=== PATIENT | female | born 1955 | race American Indian/Alaskan Native ===

== ENCOUNTER 2017-04-20 13:32 | Emergency (ER) | payer BC ==
[2017-04-20 17:47] LABS: Basophils % (Auto) 0.4 % (0.0-1.8); Eosinophils % (Auto) 1.1 % (0.0-4.3); Hematocrit 42.7 % (30.3-42.9); Hemoglobin 14.2 gm/dl (10.1-14.3); Mean Corpuscular HGB Conc 33 % (30-34); Mean Corpuscular Hemoglobin 32 pg (28-32); Mean Corpuscular Volume 96 fl (79-97); Platelet Count 253 K/mm3 (140-440); Red Blood Count 4.47 M/mm3 (3.65-5.03); Red Cell Distribution Width 14.5 % (13.2-15.2); White Blood Count 6.3 K/mm3 (4.5-11.0)
[2017-04-20 18:10] LABS: Alanine Aminotransferase 15 units/L (7-56); Albumin 4.3 g/dL (3.9-5); Albumin/Globulin Ratio 1.1 %; Alkaline Phosphatase 114 units/L (35-129); Anion Gap 21 mmol/L; BUN/Creatinine Ratio 15.71; Bilirubin,Direct < 0.2 mg/dL (0-0.2); Bilirubin,Indirect 0.5 mg/dL; Blood Urea Nitrogen 11 mg/dL (7-17); Calcium 10.1 mg/dL (8.4-10.2); Carbon Dioxide 24 mmol/L (22-30); Chloride 90.7 mmol/L (98-107); Glucose 436 mg/dL (65-100); Lipase 61 units/L (13-60); Potassium 4.6 mmol/L (3.6-5.0); Sodium 131 mmol/L (137-145); Total Protein 8.1 g/dL (6.3-8.2)
[2017-04-20] MEDS ORDERED: NORCO 5/325 PO ONE (18:58)
--- NOTE | 2017-04-20 18:58 | Emergency Department Report ---
<TERRI WHYTE - Last Filed: 04/20/17 19:26> ED Back Pain/Injury HPI - General Chief Complaint: Back Pain/Injury Stated Complaint: r flank pain Time Seen by Provider: 04/20/17 16:29 Source: patient Limitations: No Limitations - History of Present Illness -: Gradual Similar Symptoms Previously: No Place: home Quality: aching Consistency: constant Improves With: none Worsens With: none Associated Symptoms: denies other symptoms, other (off meds). denies: confusion , weakness, chest pain, numbness, difficulty walking, cough, difficulty urinating, diaphoresis, incontinence, fever/chills, constipation, headaches, abdominal pain, loss of appetite, malaise, nausea/vomiting, rash, seizure, shortness of breath, syncope - Related Data Previous Rx's Medication Instructions Recorded Last Taken Type Sulfamethoxazole/Trimethoprim 1 each PO BID #20 tablet 04/20/17 Unknown Rx [Bactrim DS TAB] Tamsulosin [Flomax] 0.4 mg PO QDAY #30 cap 04/20/17 Unknown Rx traMADol [Ultram] 50 mg PO Q6HR PRN #20 tablet 04/20/17 Unknown Rx Allergies Allergy/AdvReac Type Severity Reaction Status Date / Time Penicillins Allergy Itching Verified 04/20/17 14:23 ED Review of Systems ROS: Stated complaint: RIGHT SIDE ABDOMINAL AND BACK PAIN Other details as noted in HPI Comment: Unobtainable due to pts medical conditions Constitutional: no symptoms reported, see HPI. denies: chills Eyes: as per HPI. denies: eye pain ENT: as per HPI. denies: ear pain, throat pain Respiratory: no symptoms reported, see HPI. denies: cough, orthopnea Cardiovascular: as per HPI. denies: chest pain, palpitations, dyspnea on exertion, orthopnea Endocrine: no symptoms reported, see HPI. denies: excessive sweating, flushing , intolerance to cold, intolerance to heat Gastrointestinal: as per HPI. denies: abdominal pain (flank pain), nausea, vomiting, diarrhea, constipation, hematemesis, melena, hematochezia Genitourinary: as per HPI. denies: urgency, dysuria Musculoskeletal: as per HPI. denies: back pain Skin: as per HPI. denies: rash, lesions Neurological: as per HPI. denies: headache, weakness Psychiatric: as per HPI. denies: anxiety, depression Hematological/Lymphatic: as per HPI. denies: easy bleeding ED Past Medical Hx - Past Medical History Previous Medical History?: Yes Hx Hypertension: Yes Hx Diabetes: Yes Additional medical history: off her metformin and lisinopril - Social History Smoking Status: Never Smoker Substance Use Type: Alcohol - Medications Home Medications: Home Medications Medication Instructions Recorded Confirmed Last Taken Type Sulfamethoxazole/Trimethoprim 1 each PO BID #20 tablet 04/20/17 Unknown Rx [Bactrim DS TAB] Tamsulosin [Flomax] 0.4 mg PO QDAY #30 cap 04/20/17 Unknown Rx traMADol [Ultram] 50 mg PO Q6HR PRN #20 tablet 04/20/17 Unknown Rx ED Physical Exam - General Limitations: No Limitations General appearance: alert - Head Head exam: Present: atraumatic - Eye Eye exam: Present: PERRL - ENT ENT exam: Present: normal exam, mucous membranes moist, TM's normal bilaterally - Neck Neck exam: Present: normal inspection - Respiratory Respiratory exam: Present: normal lung sounds bilaterally - Cardiovascular Cardiovascular Exam: Present: regular rate - GI/Abdominal GI/Abdominal exam: Present: soft, normal bowel sounds. Absent: distended, tenderness, guarding, rebound, rigid, diminished bowel sounds, hyperactive bowel sounds, hypoactive bowel sounds, organomegaly, mass, bruit, pulsatile mass , hernia - Rectal Rectal exam: Present: deferred - Extremities Exam Extremities exam: Present: normal inspection, full ROM. Absent: tenderness - Back Exam Back exam: Present: normal inspection, full ROM. Absent: tenderness, CVA tenderness (R), CVA tenderness (L), muscle spasm, paraspinal tenderness, vertebral tenderness - Neurological Exam Neurological exam: Present: alert, oriented X3, CN II-XII intact, normal gait, reflexes normal. Absent: motor sensory deficit - Psychiatric Psychiatric exam: Present: normal affect, normal mood - Skin Skin exam: Present: warm, dry, intact ED Course Vital Signs 04/20/17 04/20/17 04/20/17 14:23 18:01 20:10 Temperature 98.6 F 98.4 F Pulse Rate 87 75 68 Respiratory 18 18 17 Rate Blood Pressure 180/105 Blood Pressure 153/76 [Right] O2 Sat by Pulse 100 98 Oximetry 04/20/17 20:54 Temperature Pulse Rate Respiratory 18 Rate Blood Pressure Blood Pressure [Right] O2 Sat by Pulse Oximetry - Reevaluation(s) Reevaluation #1: 04/20/17 19:17 to er today w r flank pain then she said it was rad to ant abd she is diabetic and to be on metformin and lisinopril but has not been taking it she does not check bs bp elevated bs elevated no n/v/d no dysuria no polyuria/phagia/dipsia no cp or sob normal bm yest. no blood. she states sometimes she takes something to help her go. a/o x 4 no focal neuro def ambulating in er labs noted 0- ua resulted additional orders placed report to Aryan CAMARA Reevaluation #2: 04/20/17 19:26 report to Eliot [facility]ARA ED Medical Decision Making - Lab Data Result diagrams: 04/20/17 17:29 04/20/17 17:29 - Differential Diagnosis uti; ro stone; DM hyperglycemia w or wo ketones Critical care attestation.: If time is entered above; I have spent that time in minutes in the direct care of this critically ill patient, excluding procedure time. ED Disposition Clinical Impression: Hyperglycemia, Renal stones Diabetes Qualifiers: Diabetes mellitus type: type 2 Diabetes mellitus complication status: without complication Diabetes mellitus superintendent container terminal insulin use: without superintendent container terminal use Qualified Code(s): E11.9 - Type 2 diabetes mellitus without complications Hypertension Qualifiers: Hypertension type: essential hypertension Qualified Code(s): I10 - Essential ( primary) hypertension Umbilical hernia Qualifiers: Obstruction and gangrene presence: without obstruction or gangrene Qualified Code(s): K42.9 - Umbilical hernia without obstruction or gangrene Disposition: DC-01 TO HOME OR SELFCARE Condition: Good Instructions: Kidney Stones (ED), Diabetes Mellitus Type 2 in Adults (ED), Hypertension (ED) Additional Instructions: take home meds Prescriptions: Sulfamethoxazole/Trimethoprim [Bactrim DS TAB] 1 each PO BID #20 tablet Tamsulosin [Flomax] 0.4 mg PO QDAY #30 cap traMADol [Ultram] 50 mg PO Q6HR PRN #20 tablet PRN Reason: Pain Referrals: ANUSHKA YOUNG MD [Primary Care Provider] - 3-5 Days YULIA WOLF MD [Staff Physician] - 3-5 Days Forms: Work/School Release Form(ED) <ELIOT VANEGAS - Last Filed: 04/20/17 22:10> ED Medical Decision Making - Lab Data Result diagrams: 04/20/17 17:29 04/20/17 17:29 - Radiology Data Radiology results: report reviewed bilat small renal calculi 3-4 mm, no hydronephrosis , no significant findings ED Disposition Is pt being admited?: No Does the pt Need Aspirin: No Time of Disposition: 22:09
[2017-04-20 19:09] LABS: Bacteria,Urine 1+ /HPF (Negative); Bilirubin,Urine NEG (Negative); Blood,Urine SM (Negative); Ketones,Urine 20 mg/dL (Negative); Leukocyte Esterase,Urine NEG (Negative); Mucus,Urine 1+ /HPF; Nitrite,Urine NEG (Negative); Urobilinogen,Urine < 2.0 mg/dL (<2.0)
[2017-04-20] MEDS ORDERED: NACL 0.9% 1000 ML 1,000 ML IV ONE (19:11)
[2017-04-20] MEDS ORDERED: NORCO 7.5/325 PO ONE (19:13)
[2017-04-20 20:28] VITALS: BP 153/76
--- NOTE | 2017-04-20 21:11 | Cat Scan Report ---
FINAL REPORT EXAM: CT ABDOMEN PELVIS WO CON HISTORY: r flank pain TECHNIQUE: Spiral CT scanning of the abdomen and pelvis. No oral or IV contrast administered. Multiplanar reformations. PRIORS: None. FINDINGS: Abdomen: Visualized lung bases show mild atelectatic change or scarring bilaterally. Probable calcified granulomata noted bilaterally. Solid organ evaluation is limited due to lack of IV contrast. A few, small calcifications in the right kidney, largest measuring 3-4 mm in the upper pole. A few, small calcifications also in the left kidney may be vascular or represent nonobstructing calculi. No significant hydronephrosis or abnormal perinephric fluid collection. No radiopaque gallstones. Remainder of visualized abdominal parenchyma grossly unremarkable. Pelvis: Probable phleboliths project in the bilateral lower pelvis. No appreciable calcifications or significant dilatation in the distal ureters. Bowel grossly unremarkable. Appendix within normal limits. No significant free peritoneal fluid or loculated fluid collection. Aortoiliac calcification without aneurysmal dilatation. Degenerative change in the lumbar spine. Small, fat-containing umbilical hernia. IMPRESSION: 1. Nonobstructing, bilateral renal calcifications. No significant hydronephrosis.
== END 2017-04-20 22:36 | disposition home or self-care (01) ==
LOC: ED 13:32
DX: K42.9 Umbilical hernia without obstruction or gangrene (principal); E11.65 Type 2 diabetes mellitus with hyperglycemia; I10 Essential (primary) hypertension; N20.0 Calculus of kidney; Z88.0 Allergy status to penicillin
CPT/HCPCS: 36415; 74176; 80048; 80074; 81001; 82010; 82150; 82962; 83690; 85025; 87086; 96361; 96374; 99284; J7030; J1815

== ENCOUNTER 2021-10-30 01:27 | Emergency (ER) | payer BC, OTHER ==
[2021-10-30] MEDS ORDERED: methylPREDNISolone Sod Succinate 125 MG/2 ML INJ IM ONE (07:42)
[2021-10-30] MEDS ORDERED: FAMOTIDINE 20 MG TAB PO ONE (07:42)
[2021-10-30] MEDS ORDERED: diphenhydrAMINE 25 MG CAP PO ONE (07:42)
--- NOTE | 2021-10-30 07:47 | Emergency Department Report ---
HPI - General Chief Complaint: Allergic Reaction PUI?: No Time Seen by Provider: 10/30/21 07:35 ED Past Medical Hx - Past Medical History Hx Hypertension: Yes Hx Diabetes: Yes Additional medical history: off her metformin and lisinopril - Social History Smoking Status: Never Smoker Substance Use Type: Alcohol - Medications Home Medications: Home Medications Medication Instructions Recorded Confirmed Last Taken Type Sulfamethoxazole/Trimethoprim 1 each PO BID #20 tablet 04/20/17 Unknown Rx [Bactrim DS TAB] Tamsulosin [Flomax] 0.4 mg PO QDAY #30 cap 04/20/17 Unknown Rx traMADoL [Ultram] 50 mg PO Q6HR PRN #20 tablet 04/20/17 Unknown Rx EPINEPHrine [Epipen] 0.3 mg IJ ONCE PRN #1 pen 10/30/21 Unknown Rx Famotidine [Pepcid] 20 mg PO BID #10 tablet 10/30/21 Unknown Rx Prednisone [predniSONE 10 mg 10 mg PO .TAPER #1 pack 10/30/21 Unknown Rx (6-Day Pack, 21 Tabs)] hydrOXYzine PAMOATE [Vistaril] 25 mg PO Q6HR PRN #21 capsule 10/30/21 Unknown Rx ED Review of Systems ROS: Stated complaint: ALLERGIC REACTION Other details as noted in HPI Comment: All other systems reviewed and negative Constitutional: denies: chills, diaphoresis, fever, weakness Eyes: other (Bilateral eyelid and periorbital edema right greater than left). denies: eye pain, eye discharge, vision change ENT: ear pain. denies: throat pain, dental pain, hearing loss, epistaxis Respiratory: denies: cough, orthopnea, shortness of breath, SOB with exertion, SOB at rest, stridor, wheezing Cardiovascular: denies: chest pain, palpitations, dyspnea on exertion, orthopnea, edema, syncope Endocrine: no symptoms reported Gastrointestinal: denies: abdominal pain, nausea, vomiting Genitourinary: denies: urgency, dysuria Musculoskeletal: denies: back pain, joint swelling Skin: rash, pruritus. denies: lesions, change in color, change in hair/nails Neurological: denies: headache, weakness Psychiatric: denies: anxiety, depression Hematological/Lymphatic: denies: easy bleeding, easy bruising Physical Exam - Physical Exam Vital Signs: Vital Signs 10/30/21 01:33 Temperature 99.1 F Pulse Rate 107 H Respiratory 18 Rate Blood Pressure 179/96 O2 Sat by Pulse 96 Oximetry ED Course Vital Signs 10/30/21 01:33 Temperature 99.1 F Pulse Rate 107 H Respiratory 18 Rate Blood Pressure 179/96 O2 Sat by Pulse 96 Oximetry - Reevaluation(s) Reevaluation #1: 10/30/21 09:10 Eye swelling improved ED Medical Decision Making - Medical Decision Making 66-year-old black female with a past medical history of diabetes presents to the emergency department for evaluation of probable allergic reaction. She states that on Monday evening she had her hair dyed in a salon then on she started to have itching to her scalp and neck, and on Monday she developed swelling to her bilateral eyelids. She denies shortness of breath and chest pain or tightness but states that she is still having a significant amount of itching to her neck and scalp area. She states that she is taking Benadryl at home on Monday and without improvement. Swelling improved after medications, and patient denies shortness of breath and chest tightness or pain. She states that she does feel better. She was advised to discontinue use of the brand of hair dye. She will be treated with prednisone Dosepak for the next 6 days along with 5 days of Pepcid p.o. and Vistaril to use as needed for itching. She will be discharged with EpiPen to use as needed. She will was advised to take medications as prescribed and follow-up with nuclear physicist for further evaluation and management. She verbalized understanding of and agreement with plan of care. Critical care attestation.: If time is entered above; I have spent that time in minutes in the direct care of this critically ill patient, excluding procedure time. ED Disposition Clinical Impression: Allergic reaction Qualifiers: Encounter type: initial encounter Qualified Code(s): T78.40XA - Allergy, unspecified, initial encounter Disposition: HOME / SELF CARE / HOMELESS Is pt being admited?: No Does the pt Need Aspirin: No Condition: Stable Instructions: Allergies, Adult, [id number], How to Use an Auto-Injector Pen Additional Instructions: Do not use that type of hair dye again. Take medications as prescribed. Follow-up with primary care provider or nuclear physicist as needed for further evaluation and management. Return to the emergency department for any concerning symptoms. Prescriptions: EPINEPHrine [Epipen] 0.3 mg IJ ONCE PRN #1 pen PRN Reason: Anaphylaxis Famotidine [Pepcid] 20 mg PO BID #10 tablet Prednisone [predniSONE 10 mg (6-Day Pack, 21 Tabs)] 10 mg PO .TAPER #1 pack hydrOXYzine PAMOATE [Vistaril] 25 mg PO Q6HR PRN #21 capsule PRN Reason: Itching Referrals: JOSELIN CASTELLON MD [Primary Care Provider] - 3-5 Days LITO GARNER MD [Staff Physician] - 3-5 Days Time of Disposition: 09:14 ED Allergic Reaction HPI - General Chief complaint: Allergic Reaction Stated complaint: ALLERGIC REACTION Time Seen by Provider: 10/30/21 07:35 Source: patient Mode of arrival: Ambulatory Limitations: Physical Limitation - History of Present Illness Initial Comments: 66-year-old black female with a past medical history of diabetes presents to the emergency department for evaluation of probable allergic reaction. She states that on Monday evening she had her hair dyed in a salon then on she started to have itching to her scalp and neck, and on Monday she developed swelling to her bilateral eyelids. She denies shortness of breath and chest pain or tightness but states that she is still having a significant amount of itching to her neck and scalp area. She states that she is taking Benadryl at home on Monday and without improvement. Complaint: allergic reaction, facial swelling -: Gradual, days(s) (3) Exposure: other (Hair dye) Symptoms: rash, itching, facial swelling. denies: lip swelling, difficulty swallowing, difficulty breathing, hoarseness, syncopy, dizziness, nausea Severity: moderate Treatment Prior to Arrival: benadryl Previous Allergy History: none - Related Data Previous Rx's Medication Instructions Recorded Last Taken Type Sulfamethoxazole/Trimethoprim 1 each PO BID #20 tablet 04/20/17 Unknown Rx [Bactrim DS TAB] Tamsulosin [Flomax] 0.4 mg PO QDAY #30 cap 04/20/17 Unknown Rx traMADoL [Ultram] 50 mg PO Q6HR PRN #20 tablet 04/20/17 Unknown Rx EPINEPHrine [Epipen] 0.3 mg IJ ONCE PRN #1 pen 10/30/21 Unknown Rx Famotidine [Pepcid] 20 mg PO BID #10 tablet 10/30/21 Unknown Rx Prednisone [predniSONE 10 mg 10 mg PO .TAPER #1 pack 10/30/21 Unknown Rx (6-Day Pack, 21 Tabs)] hydrOXYzine PAMOATE [Vistaril] 25 mg PO Q6HR PRN #21 capsule 10/30/21 Unknown Rx Allergies Allergy/AdvReac Type Severity Reaction Status Date / Time Penicillins Allergy Itching Verified 04/20/17 14:23 ED General adult EXAM - General General appearance: alert, in no apparent distress Limitations: Physical Limitation - Head Head exam: Positive: atraumatic, normocephalic. Negative: normal inspection (Swelling to bilateral lips) - Eye Eye exam: periorbital swelling (Right greater than left) Extraocular Movement: Normal Pupils: Positive: normal accommodation - ENT ENT exam: Positive: normal exam, normal orophraynx, mucous membranes moist - Neck Neck exam: Positive: normal inspection. Negative: lymphadenopathy - Respiratory Respiratory exam: Positive: normal lung sounds bilaterally. Negative: respirat ory distress, wheezes, rales, rhonchi, stridor - Cardiovascular Cardiovascular Exam: Positive: tachycardia, normal heart sounds - GI/Abdominal GI/Abdominal exam: Positive: soft. Negative: distended, tenderness - Extremities Extremities exam: Positive: normal inspection - Back Back exam: normal inspection - Neurological Neurological exam: Positive: alert, oriented X3 - Psychiatric Psychiatric exam: Positive: normal affect, normal mood - Skin Skin exam: Positive: warm, dry, intact, normal color
[2021-10-30 09:45] VITALS: BP 186/94
== END 2021-10-30 09:45 | disposition home or self-care (01) ==
LOC: ED 01:27
DX: T78.40XA Allergy, unspecified, initial encounter (principal); I10 Essential (primary) hypertension; E11.9 Type 2 diabetes mellitus without complications; Z72.89 Other problems related to lifestyle; Z88.0 Allergy status to penicillin; Z79.899 Other long term (current) drug therapy; X58.XXXA Exposure to other specified factors, initial encounter
CPT/HCPCS: 96372; 99282; J2930